=== PATIENT | male | born 1975 | race Two or more races ===

== ENCOUNTER 2016-12-27 07:13 | Emergency (ER) | payer MEDICAID ==
[~2016-12-27] VITALS: Ht 167.6 cm; Wt 68.0 kg
[2016-12-27] MEDS ORDERED: Lidocaine 1% MPF 10mg/ml 5ml ONE (07:25)
[2016-12-27] MEDS ORDERED: Lidocaine 1% Plain 30 ml INJ ONE (07:30)
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
[2016-12-27] MEDS ORDERED: Bacitracin Oint UD TOPIC ONE (08:00)
[2016-12-27 08:07] VITALS: BP 139/87
[2016-12-27 08:19] VITALS: BP 139/87
--- NOTE | 2016-12-27 11:51 | Diagnostic Imaging Report ---
Indication: PAIN left hand pain/laceration the first digit Technique: 3 views left hand Comparison: none Findings: No acute fractures. No dislocations. The joint spaces are preserved. Impression: Negative This agrees with the preliminary interpretation provided by the emergency room physician
== END 2016-12-27 08:19 | disposition home or self-care (01) ==
LOC: EDBD 07:13 → EMR 08:11
DX: S61.012A Laceration without foreign body of left thumb without damage to nail, initial encounter (principal); T14.8XXA Other injury of unspecified body region, initial encounter; Y09 Assault by unspecified means; Y92.521 Bus station as the place of occurrence of the external cause
CPT/HCPCS: 73130; 99283; J2001; Z7502